=== PATIENT | female | born 1960 | race African-American/Black ===

== ENCOUNTER 2019-02-12 05:35 | Day surgery (SDC) | payer MEDICARE ==
[2019-02-11 11:26] LABS: BASOPHILS 0.4 % (0-2); EOSINOPHILS 1.1 % (0-7); HEMATOCRIT 31.1 % (36.0-48.0); HEMOGLOBIN 10.7 g/dL (12-16); LYMPHOCYTES 30.2 % (15-50); MCH 30.2 pg (26.0-34.0); MCHC 34.4 g/dL (31.0-37.0); MCV 87.9 fL (80.0-100.0); MONOCYTES 12.9 % (2-11); NEUTROPHILS 55.4 % (40-80); RBC 3.54 10x6/uL (4.00-5.40); RDW 17.6 % (11.5-14.5); WBC 2.8 10x3/uL (4.8-10.8)
[2019-02-11 11:35] LABS: ANION GAP 10.3 mmol/L (8-16); CARBON DIOXIDE 28.4 mmol/L (21.0-32.0); CREATININE - SERUM 4.4 mg/dL (0.6-1.3); POTASSIUM - SERUM 3.7 mmol/L (3.5-5.1)
[2019-02-11 11:51] LABS: PLATELET COUNT 86 10x3/uL (130-400)
[2019-02-11 12:00] LABS: INR 1.33 (0.85-1.17); PROTIME 15.9 SECONDS (11.6-15.0)
[2019-02-11 14:27] LABS: PLATELET ESTIMATE DECREASED
[2019-02-11 14:29] LABS: ACANTHOCYTES OCC; ANISOCYTOSIS OCC; SCHISTOCYTES OCC; TARGET CELLS OCC
[~2019-02-12] VITALS: Ht 165.1 cm; Wt 75.3 kg
[~2019-02-12 05:35] MED LIST: APRESOLINE25 MG PO; ATIVAN1 MG PO; BUSPAR10 MG PO; BUSPAR5 MG PO; COUMADIN10 MG PO; DEPAKOTE500 MG PO; ENDOCET 10-3251 TAB PO; LASIX40 MG PO; MILK OF MAGNESI30 ML PO; NEPHRO-VITE RX1 TAB PO; PAXIL10 MG PO; PROTONIX40 MG PO; RENAGEL800 MG PO; THIORIDAZINE H100 MG PO; TOPROL XL25 MG PO; TOPROL XL50 MG PO; XANAX0.25 MG PO; ZYLOPRIM100 MG PO; ZYLOPRIM300 MG PO
[2019-02-12 07:07] VITALS: BP 183/126; Ht 165.1 cm; Wt 75.3 kg
--- NOTE | 2019-02-12 07:25 | NUR ---
0631-NOTIFIED WITH PLATELET COUNT OF 86. WILL CONTACT RENAL
--- NOTE | 2019-02-12 07:26 | NUR ---
0640-CALLED [phone] AND LEFT MESSAGE FOR RENAL TO RETURN CALL AT [phone] REGARDING LAB
--- NOTE | 2019-02-12 07:26 | NUR ---
0720-CALLED [phone] FOR SECOND TIME. MESSAGE LEFT WITH ANSWERING SERVICE TO RETURN CALL REGARDING ABNORMAL LAB AT [phone]
--- NOTE | 2019-02-12 07:34 | NUR ---
0729-SERENA FROM [facility] CALLED. SHE WANTS US TO CONTACT WITH FURTHER ORDERS
--- NOTE | 2019-02-12 07:34 | NUR ---
0722- VOICEMAIL LEFT ON 'S PHONE ([phone])TO RETURN CALL TO [facility] OUTPATIENT DEPARTMENT REGARDING LAB
--- NOTE | 2019-02-12 11:10 | NUR ---
PLATELETS GIVEN PER PATROL AGENT AT BEGINNING OF CASE
--- NOTE | 2019-02-16 10:48 | OP ---
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 OPERATION PERFORMED: Left arm AV fistulogram with balloon angioplasty of stenotic aberrant cephalic arch and also dilatation of subclavian vein stenosis via the dialysis access with a 9 mm diameter x 80 mm long angioplasty balloon and also open revision of AV fistula left arm with resection of AV fistula aneurysm and replacement with an interposition 6-mm diameter PTFE Propaten graft. SURGEON: Eliza Kaur MD ANESTHESIA: General by CHIEF ADMINISTRATIVE OFFICER. REFERRING PHYSICIAN: Dr. Condon PREOPERATIVE NOTE: Ms. Gonzalez is a 58-year-old -[place] female from [place] with end-stage renal disease, on dialysis with a left arm brachiocephalic AV fistula. She has had aneurysmal deterioration of the fistula, particularly in the short segment between the anastomosis to the distal brachial or proximal radial arteries and the antecubital skin fold where there is a multi-tiered or nippled aneurysm, which is not thought to be imminent risk for rupture. However, it is likely to continue expanding at a rapid rate and could certainly rupture in the future. It needs to be repaired clearly and for that reason she is brought to the hospital as an outpatient to the operating room for an open revision of her fistula. I plan to do a fistulogram to determine if there is any proximal stenosis present, which has caused or contributed to this aneurysmal deterioration. DESCRIPTION OF PROCEDURE: Under general anesthesia in supine position, the patient was prepped and draped in sterile manner. The fistula was accessed with micropuncture technique and contrast injection with digital subtraction angiography demonstrated an aberrant cephalic arch which passes anterior to and above the clavicle. The external jugular vein drains into the arch, which then passes below the clavicle and joins the subclavian vein just lateral to the confluence with the internal jugular vein. There was stenosis of the cephalic arch at the confluence with the external jugular. This was hemodynamically significant and caused retrograde flow in the external jugular vein. There was also a hemodynamically significant about 60% to 70% stenosis of the subclavian vein immediately distal to the confluence of the internal jugular. I placed a 7-Estonian introducer and dilated the areas of stenosis including the central vein stenosis with a 9 mm x 80 mm angioplasty balloon. Repeated contrast injections revealed 0 residual and improved more rapid centrally directed flow to the superior vena cava. Images are recorded in the PACS and were interpreted OPERATIVE REPORT [id number] EULALIA GONZALEZ immediately in real time by the operating surgeon. The 7-Estonian sheath was removed and hemostasis obtained at that puncture site with direct pressure and a 4-0 Prolene [id number] suture. I then made an incision along the medial aspect of the fistula from just above the antecubital space to the level of the arterial anastomosis below the antecubital space. The underlying aneurysm was fully exposed and dissected circumferentially for its full distance. I elected to resect it and replace it with a PTFE graft. The patient was systemically heparinized with 3000 units of heparin and after adequate circulation time elapsed, the fistula was clamped proximal and distal to the aneurysm, which was then resected. It was discarded and not sent to pathology. The segment was replaced then with a 6-mm standard wall thickness Propaten graft, which was sutured end-to-end to the JA segment just above the arterial anastomosis with running 6-0 Prolene and sutured to the fistula just above the antecubital space also end-to-end with running 6-0 Prolene, and when completed and the occluding vessel loops and clamps were released, excellent flow developed within the fistula. Both suture lines were sealed with fibrin sealant as well. The patient's heparin was reversed partially with 20 mg of protamine given systemically and the patient's wound infiltrated with 0.25% Marcaine without epinephrine and the wound closed without a drain using interrupted inverted 3-0 Vicryl and running intracuticular 4-0 Monocryl. The incision was further dressed and sealed with Dermabond glue and Maxorb Ag, Tegaderm, and Cavilon skin prep. The puncture site on the fistula just above this was dressed with Ultrafoam, Tegaderm, and Cavilon skin prep. The patient was awakened and taken to the recovery room with a nicely functioning fistula, which is less hyperpulsatile with better collapse and excellent augmentation. PLAN: The patient will go home today and continue on all of her same medications. She was on Coumadin preoperatively for a mechanical heart valve. This was stopped preoperatively and the patient has been on a Lovenox window. She will resume her usual daily dose of Coumadin starting tomorrow, and we will continue the same daily dose of Lovenox for the next 5 days. She should be able to have dialysis with her existing fistula tomorrow without necessarily having to even disturb any of the surgical dressings applied today. I will follow up with her in my office next week. TRANSINT:[id number] Voice Confirmation ID: [id number] DOCUMENT ID: [id number] ELIZA KAUR MD at 1048 CC: DANIELA CONDON MD [id number] DICTATION DATE: 02/12/19 171 PROCESS ANALYST: 02/12/19 2300 [facility] 02/12/19 [facility] [address] [place] [address]
== END 2019-02-12 14:40 | disposition home or self-care (01) ==
LOC: D.OPS 05:35 → D.PAN 08:00 → D.OPS 14:40
PROVIDERS: Surgery; ATTEND Internal Medicine Nephrology
DX: T82.868A Thrombosis due to vascular prosthetic devices, implants and grafts, initial encounter (principal); N18.6 End stage renal disease; I87.1 Compression of vein; Z01.812 Encounter for preprocedural laboratory examination

== ENCOUNTER 2020-09-06 06:00 | Day surgery (SDC) | payer OTHER ==
[2020-09-05 11:43] LABS: BASOPHILS 0 % (0-2); EOSINOPHILS 2.4 % (0-7); HEMATOCRIT 24.3 % (36.0-48.0); HEMOGLOBIN 7.9 g/dL (12-16); LYMPHOCYTE ABS# 0.54 10x3/uL (1.18-3.74); LYMPHOCYTES 26.1 % (15-50); MCH 30.5 pg (26.0-34.0); MCHC 32.5 g/dL (31.0-37.0); MCV 93.8 fL (80.0-100.0); MEAN PLATELET VOLUME 9.2 fL (7.4-10.4); MONOCYTES 17.9 % (2-11); NEUTROPHIL ABS# 1.11 10x3/uL (1.56-6.13); NEUTROPHILS 53.6 % (40-80); PLATELET COUNT 82 10x3/uL (130-400); RBC 2.59 10x6/uL (4.00-5.40); RDW 18.7 % (11.5-14.5); WBC 2.1 10x3/uL (4.8-10.8)
[2020-09-05 11:58] LABS: ANION GAP 11.1 mmol/L (8-16); CALCIUM 8.8 mg/dL (8.5-10.1); CARBON DIOXIDE 30.5 mmol/L (21.0-32.0); CREATININE - SERUM 3.1 mg/dL (0.6-1.3); POTASSIUM - SERUM 3.6 mmol/L (3.5-5.1)
[2020-09-05 13:04] LABS: INR 1.39 (0.85-1.17); PROTIME 15.8 SECONDS (11.6-15.0)
[2020-09-05 13:05] LABS: APTT 32.7 SECONDS (22.8-39.4)
[2020-09-05 13:14] LABS: PLATELET ESTIMATE DECREASED; PLATELET MORPHOLOGY NORMAL PLT MORPH
[~2020-09-06] VITALS: Ht 165.1 cm; Wt 64.9 kg
[~2020-09-06 06:00] MED LIST changes: +HYDROCODONE-AC1 EAC2 PO; +XANAX0.5 MG PO
[2020-09-06 06:27] VITALS: Ht 165.1 cm; Wt 64.9 kg
--- NOTE | 2020-09-06 11:23 | NUR ---
1110 IV REMOVED AND INSTRUCTIONS GIVEN. PAIN RELIEVED TO 0/10 FROM 9.5/10.
== END 2020-09-06 11:20 | disposition home or self-care (01) ==
LOC: D.OPS 06:00
PROVIDERS: Anesthesiology; ATTEND Surgery
DX: L72.8 Other follicular cysts of the skin and subcutaneous tissue (principal); L08.9 Local infection of the skin and subcutaneous tissue, unspecified; B88.8 Other specified infestations; N18.6 End stage renal disease; Z99.2 Dependence on renal dialysis; I50.9 Heart failure, unspecified; F17.200 Nicotine dependence, unspecified, uncomplicated